=== PATIENT | female | born 1950 | race Caucasian/White ===

== ENCOUNTER 2016-09-04 12:53 | Emergency (ER) | payer OTHER ==
[~2016-09-04] VITALS: Ht 170.2 cm; Wt 86.0 kg
[2016-09-04 13:09] VITALS: BP 160/74; PULSE 89; RESP 18; TEMP 98.3; O2SAT 97
[2016-09-04] MEDS ORDERED: LEVO25TA4 PO (13:23)
[2016-09-04] MEDS ORDERED: MELO-1 PO (13:24)
[2016-09-04] MEDS ORDERED: LISI-519 PO (13:24)
[2016-09-04] MEDS ORDERED: TIZA4CAP3 PO (13:25)
--- NOTE | 2016-09-04 13:49 | PD ---
HPI Chief Complaint: Respiratory Symptoms Time Seen by Provider: 13:29 Travel History International Travel<30 days: No Contact w/Intl Traveler<30days: No Traveled to known affect area: No History of Present Illness HPI 66-year-old female presents to the ED via EMS for evaluation of low 02 sats after intubation for panendoscopy at the GI specialist today. The procedure was abandoned due to intraoperative spasm. Per EMS the patient was administered 125 mg Solu-Medrol and nebs 2 in the recovery room. EMS also reports that the patient walked in the recovery room with no drop in 02 sats before transport to the ED. On presentation the patient denies chest pain, palpitations, shortness of breath, cough. She states that she is feeling "fine" and "normal." She does not use oxygen at home. She does admit to smoking marijuana daily, including today before her procedure. She endorses recent lower abdominal pains and intermittent nausea but states that she is in the process of having that evaluated on an outpatient basis. She does not wish to have the abdominal pain evaluated in the ED at this time. [facility] Past Medical History Diminished Hearing: No Endocrine: Yes (HYPOTHYROIDISM) Hypertension: Yes Psychiatric: Yes (PTSD) Menopausal: Yes Past Surgical History Surgical History: No Previous Surgery Social History Alcohol Use: Yes Tobacco Use: Yes Substance Use: Yes (SMOKES MARIJUANA, NOT CIGARETTES) Allergies-Medications (Allergen,Severity, Reaction): Coded Allergies: Codeine (Verified Allergy, Unknown, 09/04/16) Reported Meds & Prescriptions Reported Meds & Active Scripts Active Reported Tizanidine (Tizanidine HCl) 4 Mg Cap 4 Mg PO TID Meloxicam 15 Mg Tab 15 Mg PO DAILY Lisinopril 5 Mg Tab 5 Mg PO DAILY Levothyroxine (Levothyroxine Sodium) 25 Mcg Tab 10 Mcg PO DAILY Review of Systems Except as stated in HPI: all other systems reviewed are Neg Physical Exam Narrative GENERAL: Well-nourished, well-developed, pleasant, animated white female in no acute distress. SKIN: Focused skin assessment warm/dry. HEAD: Normocephalic. EYES: No scleral icterus. No injection or drainage. NECK: Supple, trachea midline. No JVD or lymphadenopathy. CARDIOVASCULAR: Regular rate and rhythm without murmurs, gallops, or rubs. 2+ DP and radial pulses bilaterally. RESPIRATORY: Breath sounds clear and equal bilaterally. No accessory muscle use. GASTROINTESTINAL: Abdomen soft, non-tender, nondistended. Active bowel sounds. MUSCULOSKELETAL: No cyanosis, or edema. Patient is ambulatory, moves the extremities spontaneously. BACK: Nontender without obvious deformity. No CVA tenderness. Data Data Last Documented VS Vital Signs Date Time Temp Pulse Resp B/P Pulse Ox O2 Delivery O2 Flow Rate FiO2 09/04/16 13:09 98.3 89 18 160/74 97 MDM Medical Decision Making Medical Screen Exam Complete: Yes Emergency Medical Condition: Yes Differential Diagnosis laryngospasm versus pna versus dyspnea versus obstruction versus other Narrative Course 66-year-old female presents to the ED via EMS for evaluation of low 02 sats after intubation for panendoscopy at the GI specialist today. The procedure was abandoned due to intraoperative spasm. Per EMS the patient was administered 125 mg Solu-Medrol and nebs 2 in the recovery room. EMS also reports that the patient walked in the recovery room with no drop in 02 sats before transport to the ED. On presentation the patient denies chest pain, palpitations, shortness of breath, cough. She states that she is feeling "fine" and "normal." She does not use oxygen at home. She does admit to smoking marijuana daily, including today before her procedure. She endorses recent lower abdominal pains and intermittent nausea but states that she is in the process of having that evaluated on an outpatient basis. She does not wish to have the abdominal pain evaluated in the ED at this time. Vitals reviewed. 02 sats 92-95% ORA. Patient is speaking quite animatedly with no drop in O2 sats. Physical exam reveals a pleasant white female in no acute distress. Chest is clear to auscultation bilaterally. No appreciable M/R/G. Abdomen soft, nontender. Active bowel sounds. No edema in the lower extremities. The patient walked quite quickly to the bathroom and back to bed- a distance of approximately 50-60 feet. Upon return O2 sats 92% ORA. She is not currently requiring any treatment for dyspnea and she is refusing evaluation of abdominal pain. She is discharged home with instructions to return to the ED should symptoms worsen and follow up with outpatient testing for her abdominal pains. The patient is very happy with and agreeable to this care plan. She is stable and discharged home. Diagnosis Primary Impression: Dyspnea Qualified Code: R06.00 - Dyspnea, unspecified type Referrals: Primary Care Physician Patient Instructions: Dyspnea (ED), General Instructions Additional Instructions: Rest, hydrate. Follow-up with your outpatient procedures as planned. Return to the ED for worsening of symptoms or any urgent or emergent medical condition. Disposition: 01 DISCHARGE HOME Condition: Stable Jenny Arcos Sep 04, 2016 13:49
== END 2016-09-04 14:44 | disposition home or self-care (01) ==
LOC: NEPC 12:53
DX: R06.00 Dyspnea, unspecified (principal)
CPT/HCPCS: 99283